=== PATIENT | female | born 1995 | race Caucasian/White ===

== ENCOUNTER 2023-01-04 10:53 | Outpatient (CLI) | payer OTHER ==
--- NOTE | 2023-01-04 12:02 | SLEEP CARE CONSULTATION ---
Information from patient questionnaire entered by Shelly Espinal. I have reviewed and concur with the information entered by Shelly Espinal. This document represents the service I personally performed and the decisions made by me, Wanda Wilkerson ARNP. History of Present Illness Service Date and Time: 01/04/2023 1053 Reason for Visit: New patient Chief Complaint: reports: Other (Sleep walking) Date of Onset: about 3 years Usual bedtime: 10 pm Time it takes to fall asleep: 30 minutes Snores at night: No Observed to quit breathing while asleep: No Sleeps alone due to snoring: No Number of times waking at night: once or none Reasons for waking at night: reports: Bathroom, Other (partner coming home). denies: Choking, Gasping for air Toss, Turn, or Twitch while sleeping: No Recalls having dreams: Yes Usually gets out of bed at: 0530; weekends 0900 Feels refreshed in the morning: No (only on weekends really) Morning headache: No Sleepy or fatigued during the day: Yes Ever fallen asleep while driving: No Takes day naps: No Dreams during day naps: Yes Prior sleep studies: No Additional HPI information: I had the pleasure of seeing MARCELLE DHILLON today regarding the possibility of her having a sleep disorder. Her current complaint is sleepwalking. She states it happens 2-3 times a month and can have a few months when it does not happen. Her fiance has not seen the sleepwalking but has found her out of bed and in another room. She did have a roommate who saw the sleepwalking. She states she has not woke up while it is happening. She will wake up in another room or with "things moved around". - Parasomnia Symptoms Ever been unable to move upon waking from sleep: Yes (just 3 times in a month, but none since) Walks in sleep: Yes Talks in sleep: Yes Ever acted out dreams in sleep: Yes Ever felt weak in the knees when startled or emotional: Yes (has not fallen to ground) Bothered by creepy, crawly, restless sensations in legs: No Problems with memory or concentration: Yes (both; memory may be worse) Subjective Initial Latimer Sleepiness Scale score: 8 (01-04-2023) Past Medical History Past Medical History: reports: Other (no significant medical history) Social History The patient's occupation is a AM. Patient is Single and lives in . Have you smoked in the past 12 months: Yes (vaping daily for 5-6 years) Alcohol use: Yes Alcohol amount and frequency: 2-3 drinks, twice a week Caffeine use: Yes Caffeine amount and frequency: one coffee, once or twice a week Family History Family history of sleep disordered breathing: Yes Family Hx Sleep Apnea: Mother: Snoring, Father: Snoring, Grandparent: Snoring Allergies and Home Medications Known drug allergies: Yes (Sulfa) Drug allergies reviewed: Yes Home medication list reviewed: Yes (no daily medications; take OTC vitamins) Review of Systems Weight gain over past 5 years: 15 Cardiovascular: denies: high blood pressure Gastrointestinal: reports: heartburn Neurological: denies: headaches Psychiatric: denies: anxiety, depression, mood disorder Ear/Nose/Throat: reports: tonsillectomy, wisdom teeth removed. denies: dry mouth/throat Endocrine: denies: thyroid disease Physical Exam Vital signs obtained and entered by: Wanda GUTIERREZ Blood Pressure: 102/68 (left arm) Cuff size: long Heart Rate: 67 O2 Saturation: 100 Height: 5 ft 1 in Weight: 176 lb 6.4 oz Body Mass Index: 33.3 BMI Classification: Obese Neck circumference: 13.25 Mouth and throat: narrow oropharynx Soft palate: long Hard palate: normal Uvula: normal Uvula visualization: 50% Mallampati Class II Tongue: enlarged in size with teeth macias on lateral edges Tonsils: absent bilaterally Neck: normal w/o lymphadenopathy or thyromegaly Heart: regular rate and rhythm Lungs: clear bilaterally Impression and Plan 1. Suspected Obstructive Sleep Apnea-Hypopnea Syndrome, as suggested by a history of sleep walking, unrefreshed sleep, cognitive impairment, and daytime fatigue/tiredness. Narrow oropharynx and obesity are common predisposing factors for obstructive sleep apnea-hypopnea syndrome. I recommend proceeding to polysomnography to confirm the diagnosis and to assess severity. If the patient has significant sleep disordered breathing, a manual CPAP titration study will also be performed to find the optimal treatment pressure. I informed the patient of what the sleep studies involve and after some discussion, obtained agreement to proceed. The pathophysiology of obstructive sleep apnea-hypopnea syndrome was discussed with the patient and health risks of cardiovascular and cerebrovascular disease if not treated. Risks of drowsy driving discussed in detail and patient advised to avoid long distance driving and to lathe puller at the first sign of drowsiness. Patient agreed to plan. * Schedule polysomnography +- manual CPAP titration study and return in 1-2 weeks after the study to discuss result and initiate therapy. * Avoid long distance driving or driving when feeling sleepy. * Avoid alcohol, sedative and muscle relaxant around bedtime. * Attempt to lose weight. * Review instructions provided by trained office staff on how to prepare for the sleep study. * Return for follow-up after sleep study completed. Counseling Topics: Weight loss health impact Visit Type: In Office Time Spent with Patient (minutes): 30 Provider Statement: I spent 100% of the Face to Face Visit with the patient with greater than 50% spent counseling the patient and coordination of care.
[2023-01-04 12:03] VITALS: BP 102/68
== END 2023-01-04 10:54 | disposition home or self-care (01) ==
LOC: SC 10:53
PROVIDERS: ATTEND Nurse Practitioner Family
DX: F51.3 Sleepwalking [somnambulism] (principal); G47.8 Other sleep disorders; R41.89 Other symptoms and signs involving cognitive functions and awareness; R53.83 Other fatigue; E66.9 Obesity, unspecified; Z68.33 Body mass index [BMI] 33.0-33.9, adult
CPT/HCPCS: 99203; 99212

== ENCOUNTER 2023-03-21 08:00 | Outpatient (CLI) | payer OTHER ==
[2023-03-21 17:13] LABS: BILIRUBIN,URINE NEGATIVE (NEGATIVE); GLUCOSE, URINE (UA) NEGATIVE (NEGATIVE); KETONES,URINE (UA) NEGATIVE (NEGATIVE); LEUKOCYTE ESTERASE, URINE SMALL (NEGATIVE); NITRITE,URINE NEGATIVE (NEGATIVE); OCCULT BLOOD,URINE NEGATIVE (NEGATIVE); PROTEIN,URINE NEGATIVE (NEGATIVE); UROBILINOGEN,URINE 0.2 (NORMAL) E.U./dL (NORMAL)
[2023-03-21 17:54] LABS: CLARITY,URINE CLEAR (CLEAR); RBC,URINE 0-5 /HPF (0-5); SQUAMOUS EPITHELIAL CELL,UR MANY Squamous (<= Few)
[2023-03-21 17:55] LABS: BACTERIA,URINE Many /HPF (None Seen)
== END 2023-03-21 23:59 | disposition home or self-care (01) ==
LOC: LAB.WC 08:00
PROVIDERS: ATTEND Nurse Practitioner
DX: Z34.90 Encounter for supervision of normal pregnancy, unspecified, unspecified trimester (principal)
CPT/HCPCS: 81001; 87086

== ENCOUNTER 2023-03-25 16:30 | Outpatient (CLI) | payer OTHER ==
--- NOTE | 2023-03-26 22:20 | Ultrasound Report ---
PROCEDURE: OB First Trimester w/TV INDICATIONS: POSITIVE TEST OUTSIDE/PRIOR DATING DATA: Last menstrual period (LMP): 02/01/2023. LMP-based estimated date of delivery (FRANCISCO): 11/08/2023. First dating scan (date and location): 03/25/2023. Estimated date of delivery (FRANCISCO) from first dating scan: Not applicable. TECHNIQUE: Real-time scanning was performed of the fetus and maternal pelvic organs, with image documentation. Endovaginal scanning was also performed to better visualize the fetus and maternal ovaries. COMPARISON: None. FINDINGS: Intrauterine gestational sacs identified measuring 0.95 cm corresponding to 5 weeks 5 days. No pole is identified. No heart tones. Yolk sac is present. Maternal organs: Ovaries demonstrate a right corpus luteal cyst. Nabothian cyst is present. IMPRESSION: Intrauterine gestational sac with yolk sac. No crown-rump length is identified. Recommend correlation to beta hCG levels and short interval imaging follow-up. Reviewed by: Dulce Rhodes MD on 03/26/2023 10:19 PM PDT Approved by: Dulce Rhodes MD on 03/26/2023 10:19 PM PDT Station ID: [id number]
== END 2023-03-25 16:31 | disposition home or self-care (01) ==
LOC: DI 16:30
PROVIDERS: ATTEND Nurse Practitioner
DX: Z34.90 Encounter for supervision of normal pregnancy, unspecified, unspecified trimester (principal)

== ENCOUNTER 2023-03-28 15:28 | Outpatient (CLI) | payer OTHER | END 2023-03-28 15:29 | disposition home or self-care (01) | LOC: LAB 15:28 | PROVIDERS: ATTEND Nurse Practitioner | DX: R68.89 Other general symptoms and signs (principal) | CPT/HCPCS: 36415; 84702 ==

== ENCOUNTER 2023-03-31 15:23 | Outpatient (CLI) | payer OTHER ==
[2023-03-31 16:15] LABS: THYROID STIMULATING HORMONE 1.11 uIU/mL (0.34-5.60)
== END 2023-03-31 15:24 | disposition home or self-care (01) ==
LOC: LAB 15:23
PROVIDERS: ATTEND Nurse Practitioner
DX: O99.891 Other specified diseases and conditions complicating pregnancy (principal); R68.89 Other general symptoms and signs
CPT/HCPCS: 36415; 84443; 84702

== ENCOUNTER 2023-04-14 08:00 | Outpatient (CLI) | payer OTHER ==
[2023-04-14 21:06] LABS: CHLAMYDIA TRACHOMATIS DNA NEGATIVE (NEGATIVE); NEISSERIA GONORRHOEAE DNA NEGATIVE (NEGATIVE); TRICHOMONAS VAGINALIS DNA NEGATIVE (NEGATIVE)
== END 2023-04-14 23:59 | disposition home or self-care (01) ==
LOC: LAB.WC 08:00
PROVIDERS: ATTEND Obstetrics & Gynecology
DX: Z34.90 Encounter for supervision of normal pregnancy, unspecified, unspecified trimester (principal)
CPT/HCPCS: 36415; 81001; 85025; 86592; 86762; 86787; 86803; 86850; 86900; 86901; 87086; 87340; 87389; 87491; 87591; 87661

== ENCOUNTER 2023-04-14 12:14 | Outpatient (CLI) | payer OTHER ==
[2023-04-14 12:30] LABS: BILIRUBIN,URINE NEGATIVE (NEGATIVE); GLUCOSE, URINE (UA) NEGATIVE (NEGATIVE); KETONES,URINE (UA) NEGATIVE (NEGATIVE); LEUKOCYTE ESTERASE, URINE TRACE (NEGATIVE); NITRITE,URINE NEGATIVE (NEGATIVE); OCCULT BLOOD,URINE NEGATIVE (NEGATIVE); PH,URINE 5.5 PH (5.0-7.5); PROTEIN,URINE NEGATIVE (NEGATIVE); UROBILINOGEN,URINE 0.2 (NORMAL) E.U./dL (NORMAL)
[2023-04-14 12:31] LABS: BASOPHILS % (AUTO) 0.3 %; EOSINOPHILS # (AUTO) 0.1 10^3/uL (0.0-0.7); HCT - HEMATOCRIT 32.6 % (37.0-47.0); HGB - HEMOGLOBIN 11.2 g/dL (12.0-16.0); LYMPHOCYTES # (AUTO) 2.2 10^3/uL (1.5-3.5); LYMPHOCYTES % (AUTO) 27.9 %; MEAN CORPUSCULAR HEMOGLOBIN 31.8 pg (27.0-31.0); MEAN CORPUSCULAR HGB CONC 34.4 g/dL (32.0-36.0); MEAN CORPUSCULAR VOLUME 92.6 fL (81.0-99.0); MEAN PLATELET VOLUME 8.9 fL (7.9-10.8); MONOCYTES # (AUTO) 0.7 10^3/uL (0.0-1.0); MONOCYTES % (AUTO) 8.2 %; NEUTROPHILS # (AUTO) 4.9 10^3/uL (1.5-6.6); NEUTROPHILS % (AUTO) 62.2 %; PLT - PLATELET COUNT 241 10^3/uL (130-450); RED BLOOD COUNT 3.52 10^6/uL (4.20-5.40); RED CELL DISTRIBUTION WIDTH 11.9 % (12.0-15.0); WHITE BLOOD COUNT 7.9 x10^3/uL (4.8-10.8)
[2023-04-14 12:35] LABS: CLARITY,URINE SL. CLOUDY (CLEAR)
[2023-04-14 12:37] LABS: BACTERIA,URINE Moderate /HPF (None Seen); RBC,URINE 0-5 /HPF (0-5); SQUAMOUS EPITHELIAL CELL,UR MANY Squamous (<= Few)
[2023-04-15 06:10] LABS: HBsAG SCREEN Negative (Negative)
[2023-04-15 07:10] LABS: RPR Non Reactive (Non Reactive)
[2023-04-15 08:11] LABS: VARICELLA-ZOSTER AB IGG <135 index (Immune >165)
[2023-04-16 01:08] LABS: HCV AB Non Reactive (Non Reactive)
[2023-04-16 04:09] LABS: HIV SCREEN 4TH GENERATION Non Reactive (Non Reactive)
== END 2023-04-14 12:15 | disposition home or self-care (01) ==
LOC: LAB 12:14
PROVIDERS: ATTEND Nurse Practitioner
DX: Z34.90 Encounter for supervision of normal pregnancy, unspecified, unspecified trimester (principal)
CPT/HCPCS: 36415; 81001; 85025; 86592; 86762; 86787; 86803; 86850; 86900; 86901; 87086; 87340; 87389

== ENCOUNTER 2023-04-26 15:33 | Outpatient (CLI) | payer OTHER ==
[2023-04-26 16:02] LABS: BILIRUBIN,URINE NEGATIVE (NEGATIVE); GLUCOSE, URINE (UA) NEGATIVE (NEGATIVE); KETONES,URINE (UA) NEGATIVE (NEGATIVE); LEUKOCYTE ESTERASE, URINE NEGATIVE (NEGATIVE); NITRITE,URINE NEGATIVE (NEGATIVE); OCCULT BLOOD,URINE NEGATIVE (NEGATIVE); PH,URINE 5.5 PH (5.0-7.5); PROTEIN,URINE NEGATIVE (NEGATIVE); UROBILINOGEN,URINE 0.2 (NORMAL) E.U./dL (NORMAL)
[2023-04-26 16:10] LABS: BACTERIA,URINE Moderate /HPF (None Seen); CLARITY,URINE HAZY (CLEAR); MUCUS,URINE Few Strands; RBC,URINE 0-5 /HPF (0-5); SQUAMOUS EPITHELIAL CELL,UR MOD Squamous (<= Few); WBC,URINE 0-3 /HPF (0-5)
== END 2023-04-26 15:34 | disposition home or self-care (01) ==
LOC: LAB 15:33
PROVIDERS: ATTEND Nurse Practitioner
DX: Z34.91 Encounter for supervision of normal pregnancy, unspecified, first trimester (principal)
CPT/HCPCS: 81001; 87086

== ENCOUNTER 2023-07-11 09:05 | Outpatient (CLI) | payer OTHER ==
--- NOTE | 2023-07-11 13:33 | Ultrasound Report ---
PROCEDURE: OB Detailed Eval INDICATIONS: SUPERVISION OF OUTSIDE/PRIOR DATING DATA: Last menstrual period (LMP): 02/01/2023. LMP-based estimated date of delivery (FRANCISCO): 11/08/2023. First dating scan (date and location): 04/08/2023. Estimated date of delivery (FRANCISCO) from first dating scan: 11/22/2023. The below data below was generated using the working FRANCISCO of 11/22/2023 TECHNIQUE: Real-time scanning was performed of the fetus, with image documentation and biometric measurements. Endovaginal scanning: Not performed. COMPARISON: 04/08/2023 FINDINGS: General: A single living intrauterine gestation is present. Presentation: Vertex Placenta: Placental position is posterior, without previa. Amniotic fluid index: 12.6 cm, within normal limits for gestational age. Largest pocket is 3.8 cm heart rate: 155 beats per minute. Maternal cervical canal: Closed and 5.2 cm long; normal length is 2.5 cm or more. biometrics: Biparietal diameter: 4.7 cm, 20 weeks 2 days, 28th percentile Head circumference: 18.2 cm, 20 weeks 4 days, 30th percentile Abdominal circumference: 17.2 cm, 22 weeks 1 day, 84th percentile Femur length: 3.3 cm, 20 weeks 2 days, 24th percentile Estimated gestational age from initial scan: 20 weeks 6 days Composite gestational age from present scan: 20 weeks 6 days Estimated weight and percentile: 410 g, 67th percentile Measurement variability in biometric dating: +/- 10 days from 12-20 weeks gestation, +/- 2 weeks from 20-30 weeks gestation, +/- 3 weeks at 30 weeks gestation or later. Anatomic survey: Neuro: Ventricles are normal at less than 10 mm. Cisterna magna is normal at 3-11 mm. Cerebellum i s normal in size and morphology. Nuchal skin fold: Normal at less than 6 mm between 14 and 20 weeks gestational age. Face: Nose and lips, facial profile are normal. Spine: No evidence for spina bifida. Heart: 4-chambered heart is present, with normal ventricular outflow tracts. Diaphragm: Diaphragm is intact. Stomach: Left-sided stomach is present. Kidneys: No hydronephrosis. Normal is less than 5 mm in 2nd trimester, less than 7 mm in 3rd trimester. Cord: 3 vessel cord has orthotopic insertion. Bladder: Normal in size. Extremities: All 4 extremities are visualized. IMPRESSION: A single living intrauterine with symmetric and appropriate growth. Normal anatomy. Closed cervix and normal amniotic fluid volume. Reviewed by: Kirsten Hines MD on 07/11/2023 1:32 PM PST Approved by: Kirsten Hines MD on 07/11/2023 1:32 PM PST Station ID: [id number]
== END 2023-07-11 09:06 | disposition home or self-care (01) ==
LOC: DI 09:05
PROVIDERS: ATTEND Obstetrics & Gynecology
DX: O99.282 Endocrine, nutritional and metabolic diseases complicating pregnancy, second trimester (principal); E78.5 Hyperlipidemia, unspecified; Z3A.20 20 weeks gestation of pregnancy
CPT/HCPCS: 36415; 82105

== ENCOUNTER 2023-07-11 10:29 | Outpatient (CLI) | payer OTHER ==
[2023-07-13 20:08] LABS: AFP MOM 1.45 (.); AFP VALUE 83.8 ng/mL (.); GEST. AGE ON COLLECTION DATE 20.9 weeks (.); GESTAT. AGE METHOD EDD (.); INSULIN DEP DIABETES No (.); MATERNAL AGE AT EDD 26.2 yr (.); MULTIPLE GESTATION No (.); OPEN SPINA BIFIDA RISK 1 IN 3133 (.); RACE Caucasian (.); RESULTS Report (.); TEST RESULTS *Screen Negative* (.); WEIGHT 178 lbs (.)
== END 2023-07-11 10:30 | disposition home or self-care (01) ==
LOC: LAB 10:29
PROVIDERS: ATTEND Obstetrics & Gynecology
DX: Z36.0 Encounter for antenatal screening for chromosomal anomalies (principal)
CPT/HCPCS: 36415; 82105

== ENCOUNTER 2023-08-30 07:29 | Outpatient (CLI) | payer OTHER ==
[2023-08-30 12:04] LABS: HCT - HEMATOCRIT 29.3 % (37.0-47.0); HGB - HEMOGLOBIN 9.6 g/dL (12.0-16.0); MEAN CORPUSCULAR HEMOGLOBIN 31.8 pg (27.0-31.0); MEAN CORPUSCULAR HGB CONC 32.8 g/dL (32.0-36.0); MEAN PLATELET VOLUME 9.4 fL (7.9-10.8); RED BLOOD COUNT 3.02 10^6/uL (4.20-5.40); RED CELL DISTRIBUTION WIDTH 13.2 % (12.0-15.0); WHITE BLOOD COUNT 9.3 x10^3/uL (4.8-10.8)
== END 2023-08-30 07:30 | disposition home or self-care (01) ==
LOC: LAB.N 07:29
PROVIDERS: ATTEND Obstetrics & Gynecology
DX: Z36.89 Encounter for other specified antenatal screening (principal)
CPT/HCPCS: 36415; 82950; 85027; 86850

== ENCOUNTER 2023-09-02 08:05 | Outpatient (CLI) | payer OTHER ==
[2023-09-02 08:38] LABS: GTT GLUCOSE,FASTING 89 mg/dL (74-109)
== END 2023-09-02 08:06 | disposition home or self-care (01) ==
LOC: LAB 08:05
PROVIDERS: ATTEND Obstetrics & Gynecology
DX: O99.810 Abnormal glucose complicating pregnancy (principal)
CPT/HCPCS: 36415; 82951; 82952

== ENCOUNTER 2023-09-02 11:50 | Outpatient (CLI) | payer OTHER ==
--- NOTE | 2023-09-02 20:18 | Ultrasound Report ---
PROCEDURE: OB Follow up INDICATIONS: UTERINE SIZE DATE DISCREPENCY OUTSIDE/PRIOR DATING DATA: Last menstrual period (LMP): 02/01/2023. LMP-based estimated date of delivery (FRANCISCO): 11/08/2023. First dating scan (date and location): 04/08/2023. Estimated date of delivery (FRANCISCO) from first dating scan: 11/22/2023. The below data below was generated using the working FRANCISCO of 11/22/2023. TECHNIQUE: Real-time scanning was performed of the fetus, with image documentation and biometric measurements. Endovaginal scanning: Not performed. COMPARISON: OB ultrasound, 04/08/2023 and 07/11/2023. FINDINGS: General: A single living intrauterine gestation is present. Presentation: Vertex Placenta: Placental position is posterior fundal, without previa. Amniotic fluid index: 13.0 cm, within deepest pocket 4.9 cm. heart rate: 143 beats per minute. Maternal cervical canal: Closed measuring 3.0 cm long; normal length is 2.5 cm or more. biometrics: Biparietal diameter: 7.31 cm; 29 weeks 2 days; 67.6% Head circumference: 26.24 cm; 28 weeks 4 days; 21.9% Abdominal circumference: 24.98 cm; 29 weeks 1 day; 66.7% Femur length: 4.97 cm; 26 weeks 5 days; 4.3% Estimated gestational age from initial scan: 28 weeks 3 days. Composite gestational age from present scan: 28 weeks 3 days Estimated weight and percentile: 1212.4 g; 33.7% Measurement variability in biometric dating: +/- 10 days from 12-20 weeks gestation, +/- 2 weeks from 20-30 weeks gestation, +/- 3 weeks at 30 weeks gestation or more. Other: Not applicable. IMPRESSION: 1. A single living intrauterine gestation with appropriate interval growth. 2. Femur length at 4.3%, which may be constitutional. Consider follow-up if clinically indicated. 3. weight is 33.7% for gestational age. 4. Normal ALFREDO. Reviewed by: Garth Rizzo MD on 09/02/2023 8:16 PM PST Approved by: Garth Rizzo MD on 09/02/2023 8:16 PM PST Station ID: [id number]
== END 2023-09-02 11:51 | disposition home or self-care (01) ==
LOC: DI 11:50
PROVIDERS: ATTEND Obstetrics & Gynecology
DX: O26.843 Uterine size-date discrepancy, third trimester (principal); Z3A.28 28 weeks gestation of pregnancy; O99.810 Abnormal glucose complicating pregnancy
CPT/HCPCS: 36415; 82951; 82952

== ENCOUNTER 2023-09-27 11:42 | Outpatient (CLI) | payer OTHER ==
--- NOTE | 2023-09-27 20:16 | Ultrasound Report ---
PROCEDURE: OB Follow up INDICATIONS: SUPERVISION OF OUTSIDE/PRIOR DATING DATA: Last menstrual period (LMP): 02/01/2023. LMP-based estimated date of delivery (FRANCISCO): 11/08/2023. First dating scan (date and location): 04/08/2023. Estimated date of delivery (FRANCISCO) from first dating scan: 11/22/2023. The below data below was generated using the ultrasound FRANCISCO of 11/22/2023 TECHNIQUE: Real-time scanning was performed of the fetus, with image documentation and biometric measurements. Endovaginal scanning: Not performed. COMPARISON: OB ultrasound 09/02/2023. FINDINGS: General: A single living intrauterine gestation is present. Presentation: Vertex Placenta: Placental position is posterior fundal, without previa. Amniotic fluid index: 17.7 cm, within normal limits for gestational age. Largest pocket 5.7 cm. heart rate: 136 beats per minute. biometrics: Biparietal diameter: 8.4 cm, 34 weeks 0 days. 90th percentile. Head circumference: 30.9 cm, 34 weeks 3 days. 78th percentile. Abdominal circumference: 30.2 cm, 34 weeks 1 day. 95th percentile. Femur length: 5.9 cm, 30 weeks 4 days. 8th percentile. Estimated gestational age from initial scan: 32 weeks 0 days Composite gestational age from present scan: 33 weeks 2 days Estimated weight and percentile: 430 g, 76th percentile. Measurement variability in biometric dating: +/- 10 days from 12-20 weeks gestation, +/- 2 weeks from 20-30 weeks gestation, +/- 3 weeks at 30 weeks gestation or more. Other: No gross abnormality. IMPRESSION: 1. Torres living intrauterine at 33 weeks 2 days based on today's ultrasound. Overall fe tus is in the 76th percentile for weight. Of note the femur length is in the 8th percentile. 2. Normal placenta and amniotic fluid. Reviewed by: Danny Rendon MD on 09/27/2023 8:15 PM PST Approved by: Danny Rendon MD on 09/27/2023 8:15 PM PST Station ID: [id number]
== END 2023-09-27 11:43 | disposition home or self-care (01) ==
LOC: DI 11:42
PROVIDERS: ATTEND Obstetrics & Gynecology
DX: Z34.93 Encounter for supervision of normal pregnancy, unspecified, third trimester (principal)

== ENCOUNTER 2023-10-25 10:16 | Outpatient (CLI) | payer OTHER ==
--- NOTE | 2023-10-25 21:06 | Ultrasound Report ---
PROCEDURE: OB Follow up INDICATIONS: UTERINE SIZE DATE DISCREPENCY OUTSIDE/PRIOR DATING DATA: Last menstrual period (LMP): 02/01/2023. LMP-based estimated date of delivery (FRANCISCO): 11/08/2023. First dating scan (date and location): 04/08/2023. Estimated date of delivery (FRANCISCO) from first dating scan: 11/22/2023. The below data below was generated using the working FRANCISCO of 11/22/2023 TECHNIQUE: Real-time scanning was performed of the fetus, with image documentation and biometric measurements. Endovaginal scanning: Not performed. COMPARISON: 09/27/2023, 09/02/2023, 07/11/2023 FINDINGS: General: A single living intrauterine gestation is present. Presentation: Vertex Placenta: Placental position is posterior, without previa. Amniotic fluid index: 18.4 cm, within normal limits for gestational age. heart rate: 137 beats per minute. Maternal cervical canal: 3.2 cm long; normal length is 2.5 cm or more. biometrics: Biparietal diameter: 9.1 cm, 36 weeks, 5 days, 77% Head circumference: 32.9 cm, 37 weeks 3 days, 55% Abdominal circumference: 35.9 cm, 39 weeks, 6 days, greater than 99% Femur length: 6.7 cm, 34 weeks, 3 days, 11% Estimated gestational age from initial scan: 36 weeks, 0 day Composite gestational age from present scan: 37 weeks, 1 day Estimated weight and percentile: 3372 g, 94% Measurement variability in biometric dating: +/- 10 days from 12-20 weeks gestation, +/- 2 weeks from 20-30 weeks gestation, +/- 3 weeks at 30 weeks gestation or more. Other: Not applicable. IMPRESSION: 1. Single live intrauterine gestation with fetus in vertex presentation. heart rate is 137 beat s per minute. Normal amount of amniotic fluid. 2. Estimated weight is now at 94%. Femur length is at 11%. Abdominal circumference is greater t sampson 99%. Reviewed by: Vasquez Strong MD on 10/25/2023 9:05 PM PST Approved by: Vasquez Strong MD on 10/25/2023 9:05 PM PST Station ID: [id number]
== END 2023-10-25 10:17 | disposition home or self-care (01) ==
LOC: DI 10:16
PROVIDERS: ATTEND Obstetrics & Gynecology
DX: O26.843 Uterine size-date discrepancy, third trimester (principal); Z3A.37 37 weeks gestation of pregnancy

== ENCOUNTER 2023-10-26 08:00 | Outpatient (CLI) | payer OTHER | END 2023-10-26 23:59 | disposition home or self-care (01) | LOC: LAB.WC 08:00 | PROVIDERS: ATTEND Obstetrics & Gynecology | DX: Z36.85 Encounter for antenatal screening for Streptococcus B (principal) | CPT/HCPCS: 87081; 87797 ==

== ENCOUNTER 2023-11-02 08:00 | Outpatient (CLI) | payer OTHER ==
[2023-11-02 10:18] LABS: RUPTURE OF MEMBRANES PLUS NEGATIVE (NEGATIVE)
== END 2023-11-02 23:59 | disposition home or self-care (01) ==
LOC: LAB.WC 08:00
PROVIDERS: ATTEND Obstetrics & Gynecology
DX: N89.8 Other specified noninflammatory disorders of vagina (principal)
CPT/HCPCS: 84112

== ENCOUNTER 2023-11-15 19:32 | Inpatient (IN) | payer OTHER, MEDICAID ==
[2023-11-15] MEDS ORDERED: METOCLOPRAMIDE 10 MG/2 ML VIAL IVP PRN (20:17)
[2023-11-15] MEDS ORDERED: OXYTOCIN 10 UNIT/ML VIAL IM PRN (20:17)
[2023-11-15] MEDS ORDERED: ACETAMINOPHEN 325 MG TABLET PO PRN (20:17)
[2023-11-15] MEDS ORDERED: SODIUM CHLORIDE FLUSH 0.9% 10 ML SYRINGE IVP PRN (20:17)
[2023-11-15] MEDS ORDERED: METHYLERGONOVINE 0.2 MG/ML VIAL IM PRN (20:17)
[2023-11-15] MEDS ORDERED: fentaNYL 100 MCG/2 ML VIAL IVP PRN (20:17)
[2023-11-15] MEDS ORDERED: miSOPROStoL 200 MCG TABLET BC PRN (20:17)
[2023-11-15] MEDS ORDERED: lidocaine 1% 20 ML MDV ID PRN (20:17)
[2023-11-15] MEDS ORDERED: TRANEXAMIC ACID IN NACL 1,000 MG/100 ML BAG IV PRN (20:17)
[2023-11-15] MEDS ORDERED: METOCLOPRAMIDE 10 MG TABLET PO PRN (20:17)
[2023-11-15] MEDS ORDERED: CARBOPROST TROMETHAMINE 250 MCG/ML VIAL IM PRN (20:17)
--- NOTE | 2023-11-15 20:25 | HISTORY & PHYSICAL EXAMINATION ---
Admit History - Visit Reason Visit Reason: Other (admission for induction at term) - : 2 : 1 Care: positive: [facility] Risk/History: positive: Other (baby with small femur) Complications This : positive: None, Other (baby is large by last uls.) Smoking Status: Never smoker (0............. ................................................................................ ................................................................................ .......................................................................) - Mother's Labs Mother's Blood Type: positive: A Mother's RH: positive: Positive GBS: positive: Group B Strep Positive Rubella Status: positive: Immune (varicella non immune) - Other Maternal History Other Maternal History: medical and hx mostly uncomplicated. no surgeries. anemia 29% hct at 28 weeks. 1 hr glucose 167, 3 hr 89/174/153/68. last ultrasound on 10/25/23: FINDINGS: General: A single living intrauterine gestation is present. Presentation: Vertex Placenta: Placental position is posterior, without previa. Amniotic fluid index: 18.4 cm, within normal limits for gestational age. heart rate: 137 beats per minute. Maternal cervical canal: 3.2 cm long; normal length is 2.5 cm or more. biometrics: Biparietal diameter: 9.1 cm, 36 weeks, 5 days, 77% Head circumference: 32.9 cm, 37 weeks 3 days, 55% Abdominal circumference: 35.9 cm, 39 weeks, 6 days, greater than 99% Femur length: 6.7 cm, 34 weeks, 3 days, 11% Estimated gestational age from initial scan: 36 weeks, 0 day Composite gestational age from present scan: 37 weeks, 1 day Estimated weight and percentile: 3372 g, 94% Review of Systems - Gastrointestinal Gastrointestinal: reports: Nausea. denies: Abdominal pain - Neurological Neurological: denies: Headache - Other Findings Other Findings: some swelling. nausea getting worse. good movment. feeling some contractions last 2 days. Physical - Abdominal Exam Contraction Frequency (min/apart): irreg Contraction Intensity: positive: Mild Uterine Resting Tone: positive: Soft - Monitoring Heart Rate Baseline: 135 Strip Review: positive: Category I - Presentation Presentation: positive: Vertex - Vaginal Exam Membranes: positive: Membranes intact Dilation (in cm): 0.5 Effacement (%): 70 Station: positive: Ballotable Cervical Position: positive: Midposition Plan for Labor - Plan For Labor I expect patient to be DC'd or transferred within 96 hours.: Yes Plan for Labor: 28 yo at 39w 0d by 7 weeks uls not = to lmp. Admit for obs for labor induction due to baby being quite large and femur is quite short. EFW 3 weeks ago was 3372 gm with AC greater than 99%ile. will start with miso. GBS + ampicillin when in labor. if no labor in 24 hrs, could discharge and try again in a day or two more. labor induction process reviewed. consents signed.
[2023-11-15 20:59] LABS: BASOPHILS % (AUTO) 0.2 %; EOSINOPHILS % (AUTO) 0.2 %; HCT - HEMATOCRIT 30.9 % (37.0-47.0); HGB - HEMOGLOBIN 10.3 g/dL (12.0-16.0); LYMPHOCYTES # (AUTO) 2.3 10^3/uL (1.5-3.5); LYMPHOCYTES % (AUTO) 21.3 %; MEAN CORPUSCULAR HEMOGLOBIN 31.4 pg (27.0-31.0); MEAN CORPUSCULAR HGB CONC 33.3 g/dL (32.0-36.0); MEAN CORPUSCULAR VOLUME 94.2 fL (81.0-99.0); MEAN PLATELET VOLUME 10.1 fL (7.9-10.8); MONOCYTES # (AUTO) 0.7 10^3/uL (0.0-1.0); MONOCYTES % (AUTO) 6.4 %; NEUTROPHILS # (AUTO) 7.8 10^3/uL (1.5-6.6); NEUTROPHILS % (AUTO) 71.3 %; PLT - PLATELET COUNT 221 10^3/uL (130-450); RED BLOOD COUNT 3.28 10^6/uL (4.20-5.40); RED CELL DISTRIBUTION WIDTH 14.2 % (12.0-15.0)
[2023-11-15] MEDS: miSOPROStoL 100 MCG TABLET VG SCH (21:09)
[2023-11-15] MEDS: ZOLPIDEM 5 MG TABLET PO PRN (21:59)
--- NOTE | 2023-11-16 01:32 | PROVIDER PROGRESS NOTE ---
Labor Progress Note - Uterine Monitoring Uterine Monitoring Mode: positive: External toco Contraction Frequency (min/apart): 2 Contraction Intensity: positive: Mild to moderate Uterine Resting Tone: positive: Soft - Monitoring Monitor Mode: positive: External ultrasound Heart Rate Variability: positive: Moderate (6-25 bmp) Accelerations: positive: Present, 15x15 Decelerations: positive: None Strip Review: positive: Category I - Vaginal Exam Dilation (in cm): 1 Effacement (%): 80 Station: -3 Cervical Position: Anterior - Labor Progress Note Labor Progress Note/Additional Text: too many contractions for second miso. catheter placed in cervix. 80 cc intrauterine. 60 cc in vaginal balloon. patient tolerated very well. took an ambien early and slept for a few hours after first miso placed. partner at bedside.
[2023-11-16] MEDS: LACTATED RINGERS 1,000 ML IV SCH (02:00)
[2023-11-16] MEDS: SODIUM CHLORIDE FLUSH 0.9% 10 ML SYRINGE IVP SCH (13:19)
--- NOTE | 2023-11-16 19:08 | PROVIDER PROGRESS NOTE ---
Labor Progress Note - Uterine Monitoring Uterine Monitoring Mode: positive: External toco Contraction Frequency (min/apart): 4-6 - Monitoring Monitor Mode: positive: External ultrasound Heart Rate Baseline: 135 Heart Rate Variability: positive: Moderate (6-25 bmp) Accelerations: positive: Present, 15x15 Decelerations: positive: None Strip Review: positive: Category I - Labor Progress Note Labor Progress Note/Additional Text: Patient doing well. Had CRB removed after 12 hours, still 1.5 cm. Misoprostol restarted. Will continue overnight and reassess for cervical ripening. Tolerating misoprostol so far. Expect progression overnight.
[2023-11-17] MEDS ORDERED: AMPICILLIN 2 GM VIAL IV ONE (02:54)
[2023-11-17] MEDS: AMPICILLIN 2 GM in SODIUM CHLORIDE 0.9% MINIBAG 100 ML IV ONE (03:14)
[2023-11-17] MEDS ORDERED: ROPIVACAINE 0.2% 200 MG/100 ML BAG EP ONE (04:12)
[2023-11-17] MEDS ORDERED: LIDOCAINE 2%-EPI 1:100000 20 ML MDV ONE (04:12)
[2023-11-17] MEDS: ONDANSETRON 4 MG/2 ML VIAL IVP PRN (05:02)
[2023-11-17] MEDS: AMPICILLIN 1 GM in SODIUM CHLORIDE 0.9% MINIBAG 100 ML IV SCH (05:13)
[2023-11-17] MEDS ORDERED: ePHEDrine 50 MG/ML VIAL IVP ONE (05:41)
--- NOTE | 2023-11-17 05:46 | ANESTHESIA ---
Pre-Anesthesia VS, & Labs - Diagnosis desires labor epidural - Procedure placement of labor epidural Vital Signs: Temp Pulse Resp BP Pulse Ox O2 Flow Rate 36.7 C 84 16 115/70 99 11/16/23 15:00 11/16/23 15:00 11/16/23 15:00 11/16/23 15:00 11/16/23 15:00 Height: 5 ft 1 in Weight (kg): 90.718 kg Body Mass Index: 37.8 BMI Classification: Obese - NPO Last Fluid Intake: SIPS - Is Patient ?: Yes (G2, P0, 39 WEEKS) - Lab Results Current Lab Results: Laboratory Tests 11/15/23 20:40: WBC 11.0 H, RBC 3.28 L, Hgb 10.3 L, Hct 30.9 L, MCV 94.2, MCH 31.4 H, MCHC 33.3, RDW 14.2, Plt Count 221, MPV 10.1, Neut # (Auto) 7.8 H, Lymph # (Auto) 2.3, [place] # (Auto) 0.7, Eos # (Auto) 0.0, Baso # (Auto) 0.0, Absolute Nucleated RBC 0.00, Nucleated RBC % 0.0 11/15/23 20:40: Blood Type A POSITIVE, Antibody Screen NEGATIVE Fish Bones: 11/15/23 20:40 Home Medications and Allergies Active Medications Acetaminophen (Acetaminophen 325 Mg Tablet) 650 mg PO Q6H PRN PRN Reason: Mild Pain or Fever>38C(100.4F) Carboprost Tromethamine (Carboprost Tromethamine 250 Mcg/Ml Vial) 250 mcg IM Q15M PRN PRN Reason: Step 4: Hemorrhage protocol Fentanyl (Fentanyl 100 Mcg/2 Ml Vial) 50 mcg IVP Q1H PRN PRN Reason: Severe Pain (Level 7-10) Oxytocin/Sodium Chloride (Pitocin/Sodium Chloride) 500 mls @ 999 mls/hr IV PRN PRN; Protocol PRN Reason: POST- HEMORR PREVENTION Stop: 11/20/23 20:18 Tranexamic Acid (Tranexamic 1,000 Mg/100ml-Nacl) 1,000 mg in 100 mls @ 600 mls/hr IV .ONCE PRN PRN Reason: EBL >1200mL and within 3hr Stop: 11/20/23 20:18 Ampicillin Sodium 1 gm/ Sodium (Chloride) 100 mls @ 200 mls/hr IV Q4H [facility] Last Admin: 11/17/23 05:17 Dose: Not Given Lactated Ringer's (Lr) 1,000 mls @ 100 mls/hr IV .Q10H [facility] Last Admin: 11/17/23 05:17 Dose: Not Given Lidocaine HCl (Lidocaine 1% 20 Ml Mdv) 20 ml ID .ONCE PRN PRN Reason: PERINEAL REPAIR Stop: 11/20/23 20:18 Methylergonovine Maleate (Methylergonovine 0.2 Mg/Ml Vial) 0.2 mg IM .ONCE PRN PRN Reason: Step 2: Hemorrhage protocol Stop: 11/20/23 20:18 Metoclopramide HCl (Metoclopramide 10 Mg Tablet) 10 mg PO Q6H PRN PRN Reason: Nausea / Vomiting Metoclopramide HCl (Metoclopramide 10 Mg/2 Ml Vial) 10 mg IVP Q6H PRN PRN Reason: Nausea / Vomiting Misoprostol (Misoprostol 200 Mcg Tablet) 800 mcg BC .ONCE PRN PRN Reason: Step 3: Hemorrhage protocol Stop: 11/20/23 20:18 Misoprostol (Misoprostol 100 Mcg Tablet) 25 mcg VG Q4HR [facility] Last Admin: 11/17/23 05:17 Dose: Not Given Ondansetron HCl (Ondansetron 4 Mg/2 Ml Vial) 4 mg IVP Q4HR PRN PRN Reason: Nausea / Vomiting Last Admin: 11/17/23 05:02 Dose: 4 mg Oxytocin (Oxytocin 10 Unit/Ml Vial) 10 unit IM .ONCE PRN PRN Reason: Step one: If no IV access Stop: 11/20/23 20:18 Sodium Chloride (Sodium Chloride Flush 0.9% 10 Ml Syringe) 10 ml IVP 0100,0900,1700 [facility] Last Admin: 11/17/23 05:16 Dose: Not Given Sodium Chloride (Sodium Chloride Flush 0.9% 10 Ml Syringe) 10 ml IVP PRN PRN PRN Reason: NEEDED PER PROVIDER ORDERS Zolpidem Tartrate (Zolpidem 5 Mg Tablet) 5 mg PO QPM PRN PRN Reason: Insomnia Last Admin: 11/17/23 00:15 Dose: 5 mg Allergies/Adverse Reactions: Allergies Allergy/AdvReac Type Severity Reaction Status Date / Time Sulfa (Sulfonamide Allergy Intermediate Hives Verified 11/16/23 05:23 Antibiotics) Anes History & Medical History - Anesthetic History Anesthesia Complications: reports: No previous complications Family history of Anesthesia Complications: Denies - Medical History Cardiovascular: reports: None Pulmonary: reports: None Gastrointestinal: reports: None Musculoskeletal: reports: None Blood Disorders: reports: None Smoking Status: Former smoker Psychosocial: reports: No issues indicated - Obstetrical History : 2 Events: reports: Other (baby with small femur) Complications: reports: None, Other (baby is large by last uls.) Exam General: Alert, Oriented x3 Dental: WNL Mouth Openin Fingerbreadth Neck Mobility: Normal Mallampati classification: II Thyromental Distance: 4-6 cm Plan Anesthesia Type: Epidural Consent for Procedure(s) Verified and Reviewed: Yes Code Status: Attempt Resuscitation ASA classification: 2-Mild systemic disease Is this case an emergency?: No
[2023-11-17] MEDS ORDERED: ONDANSETRON 4 MG/2 ML VIAL IVP PRN ×2 (05:47→14:15)
[2023-11-17] MEDS ORDERED: NALBUPHINE 10 MG/ML AMP IVP PRN (05:47)
[2023-11-17] MEDS ORDERED: diphenhydrAMINE INJ 50 MG/ML VIAL IVP PRN (05:47)
[2023-11-17] MEDS: OXYTOCIN/SODIUM CHLORIDE 500 ML IV SCH (08:35)
--- NOTE | 2023-11-17 09:17 | PROVIDER PROGRESS NOTE ---
Labor Progress Note - Uterine Monitoring Uterine Monitoring Mode: positive: External toco - Monitoring Monitor Mode: positive: External ultrasound - Vaginal Exam Dilation (in cm): 7 Effacement (%): 100 Station: -2 - Labor Progress Note Labor Progress Note/Additional Text: Patient unchanged. Will start oxytocin. Comfortable with epidural. Category 1 FHT. I expect this patient to be discharged or transferred within 96 hours.
[2023-11-17] MEDS: ROPIVACAINE 0.2% 200 MG/100 ML BAG EP PRN (12:30)
[2023-11-17] MEDS: OXYTOCIN/SODIUM CHLORIDE 500 ML IV PRN (13:13)
[2023-11-17] MEDS ORDERED: CALCIUM CARBONATE CHEW 500 MG TABLET PO PRN (14:15)
[2023-11-17] MEDS ORDERED: SIMETHICONE CHEW 80 MG TABLET PO PRN (14:15)
--- NOTE | 2023-11-17 14:20 | DELIVERY NOTE ---
Delivery Note - Labor Labor: positive: Augmented by oxytocin - Delivery Method Delivery Method: positive: Spontaneous vaginal delivery - Cervical Ripening Method Cervical Ripening Method: positive: Balloon device, Misoprostil - Presentation Presentation: positive: Vertex - Nuchal Cord Nuchal Cord: positive: None - Anesthetic Anesthetic Type: - Amniotic Fluid Description Amniotic Fluid Description: positive: Clear - Laceration Laceration: positive: 2nd degree - Suture Suture Type: positive: Vicryl Suture Size: positive: 3-0 - : positive: Placed in direct skin contact with mother, [place] used sex: positive: Male - Cord Cord: positive: 3 vessels - Placenta Placenta: positive: Intact - Estimated Blood Loss Estimated Blood Loss (in cc): 400 - Post Delivery Events Post Delivery Events: positive: No post delivery events - Delivery Comments (Free Text/Narrative) Delivery Comments (Free Text/Narrative): Preoperative Diagnoses 39 weeks gestation Suspected macrosomia Postoperative Diagnoses Same Delivery of live kraft Status post spontaneous vaginal delivery Delivery Summary: Patient was placed in the dorsal lithotomy position. Upon maternal pushing the head was delivered atraumatically followed by the anterior shoulder, posterior shoulder, then the remainder of the infant's body. A male was delivered with APGARS of 8 at 1 minute and 9 at 5 minutes. The infant was placed on its mother's chest . After the cord finished pulsating, the umbilical cord was clamped times two and cut. The placenta delivered intact with three vessel cord. Placenta was not sent to pathology. Thirty units of Pitocin were added to the IV fluid and allowed to run freely. Uterine massage was performed until uterus was deemed firm. Upon inspection of the perineum, second-degree midline laceration was noted and repaired with a running suture of 3-0 Vicryl. Several small areas of stretched epithelium were noted, but no active bleeding. Upon re-inspection the patient was hemostatic. Uterus again massaged and found to be firm. Needle and sponge c ounts were correct. Patient was stable and allowed to recover in L&D room. was stable and remained in room with mother. weight is pending at this time.
[2023-11-17] MEDS: ACETAMINOPHEN 500 MG TABLET PO SCH (14:39)
[2023-11-17] MEDS: IBUPROFEN 600 MG TABLET PO SCH (14:40)
[2023-11-17] MEDS ORDERED: LACTATED RINGERS 1,000 ML IV SCH (15:00)
[2023-11-17] MEDS: DOCUSATE SODIUM 100 MG CAPSULE PO PRN (21:22)
[2023-11-18 10:08] VITALS: O2SAT 98
[2023-11-18 13:55] VITALS: BP 112/67
--- NOTE | 2023-11-18 15:20 | Labor Flowsheet ---
Labor Flowsheet Datetime Report Generated by CPN: 11/18/2023 15:19 Datetime: 11/17/2023 15:31 VITAL SIGNS NBP Sys/Diane/Mean (mmHg): 109 : 71 : 79 Pulse: 93 Datetime: 11/17/2023 13:30 Stage of : Recovery Respirations: 14 SpO2 (%): 98 Temperature (C): 36.7 Temperature Route: Oral Datetime: 11/17/2023 13:15 LaborFlag: Labor Datetime: 11/17/2023 13:09 UTERINE ACTIVITY Monitor Mode: External Frequency (min): 1.5-3.5 Quality: Strong Duration (sec): 60-80 Pattern: Normal: <= 5 Contractions in 10 Minutes Resting Tone (Palpate): Relaxed FHR Baseline Changes: No Baseline Change Variability: Moderate 6-25 bpm Accelerations: None Decelerations: Variable Category: Category II Datetime: 11/17/2023 13:00 ASSESSMENT A Monitor Mode: External US FHR Baseline Rate : 150 Datetime: 11/17/2023 12:05 STAGE 2 Pushing: Coached on Pushing Pushing Position: Pushing with Contractions; Pushing Lithotomy Datetime: 11/17/2023 12:00 Comments: decels noted with pushing Datetime: 11/17/2023 11:45 Vital Sign Comments: BP take4n during cxtn Datetime: 11/17/2023 11:31 Pushing Progress: Descent with Pushing Stage 2 Comments: Pt begins pushing Datetime: 11/17/2023 11:25 Patient Care Comments: Pt states she is beginning to feel an urge to push Datetime: 11/17/2023 10:46 VAGINAL EXAM Dilatation (cm): 10.0 Effacement (%): 100 Station: 0 Exam by: Dr.Shimon Datetime: 11/17/2023 10:10 MEDICATIONS Pitocin (milliunits): Increased to @ 8 Datetime: 11/17/2023 09:35 PATIENT CARE Patient Position/Activity: Semi-Fowlers Datetime: 11/17/2023 09:30 Contraction Comments: coupling Datetime: 11/17/2023 07:55 Membranes Ruptured Date/Time: 11/17/2023 02:15 Cervical Ripening Agents Other: misoprostol Datetime: 11/17/2023 07:27 Antibiotics: Ampicillin IV 1 Gm Medication Comments: second dose Datetime: 11/17/2023 07:19 Anesthesia Comments: T10 on right, T8 on left. Pt. still very comfortable. Will turn pt. on right and push button for bolus and cont. to monitor. Datetime: 11/17/2023 05:40 Actions for Decelerations: IV Bolus Datetime: 11/17/2023 05:19 I/O Interventions: Doran Cath Inserted Datetime: 11/17/2023 05:16 Epidural Procedure Other: Pump Started Datetime: 11/17/2023 04:43 Epidural Procedure: Loading Dose Datetime: 11/17/2023 04:31 PROCEDURE TIME OUT Procedure Verify: Correct Patient Identity; Correct Side and Site are Marked; Accurate Procedure Co nsent Form; Agreement on Procedure to be Done; Correct Patient Position; Relevant Images and Results are Properly Labeled and Displayed; Addressed Need to Administer Antibiotics or Fluids for Irrigation ; Safety Precautions Based on Patient History or Medication Use Datetime: 11/17/2023 04:23 ANESTHESIA Epidural Positioning: Sitting Datetime: 11/17/2023 03:17 Monitor Interventions for UA: [place] Adjusted Monitor Interventions for FHR: Ultrasound Adjusted Datetime: 11/17/2023 02:23 Hygiene: Shower Datetime: 11/17/2023 02:15 Membrane Status: Ruptured Membranes Rupture Method: Spontaneous Amniotic Fluid Color: Clear Amniotic Fluid Amount: Moderate Amniotic Fluid Odor: Normal Nitrazine: Positive Datetime: 11/17/2023 00:14 Cervical Ripening Agents: Doran Balloon; Cytotec @ Datetime: 11/16/2023 14:58 COMMUNICATION Communication: Provider at Bedside Notification Reason: Labor Status Communication Comments: Provider bedside w/ pt. to discuss induction plan. Datetime: 11/16/2023 13:52 Vaginal Bleeding: None Cervix, Consistency: Soft Datetime: 11/16/2023 01:16 Teaching Comments: l Datetime: 11/15/2023 21:58 Analgesics/Sedatives: Ambien (mg) @ 5 Datetime: 11/15/2023 20:48 MATERNAL ASSESSMENT Level of Consciousness: Alert Headache: Denies Nausea/Vomiting: Denies RUQ Epigastric Pain: Denies TEACHING Instructional Method: Verbal; Verbalized Understanding Plan of Care: Plan of Care Discussed Unit Routine: [place] to Room; Call [place]; Bed; Waiting Areas Labor/Induction: Cervical Ripening; Induction; Tachysystole Interventions Pain Management: IV Narcotics; Epidural; PRN Medications; Pain Scale/Goals; Comfort Measures Medications: Antibiotics; Cervical Ripening; Pitocin Related: Hydration
--- NOTE | 2023-11-18 22:50 | DISCHARGE SUMMARY ---
"Discharge Summary Admit Date: 11/15/23 Discharge Date: 11/18/23 Discharging Provider: Claudia Grimm MD Code Status: Attempt Resuscitation - DIAGNOSES Admission Diagnoses: s/p vaginal delivery at term. LGA baby. Discharge Diagnoses with Status of Each Condition: delivered and doing well. - HPI History of Present Illness: admitted for labor induction. baby with large EFW and AC > 99%ile. - CONSULTS | PROCEDURES Procedures: misoprostol and catheter to induce labor. vaginal delivery. - HOSPITAL COURSE Hospital Course: patient was admitted and susan alot with miso. catheter placed in cervix. removed after 12 hours and not in labor. more miso. finally SROM and then active labor and delivery vaginall. Baby born [birth year] at 1315. 9lb 10.7 oz. 21 inches long. Post course was unremarkable and she was discharged home at 24 hours. Baby's name is JUAN. She will follow up in 1 week. - ALLERGIES Allergies/Adverse Reactions: Allergies Allergy/AdvReac Type Severity Reaction Status Date / Time Sulfa (Sulfonamide Allergy Intermediate Hives Verified 11/16/23 05:23 Antibiotics) - MEDICATIONS Home Medications: Ambulatory Orders Medication Instructions Recorded Confirmed Acetaminophen [Tylenol] 1,000 mg PO Q8H PRN #30 tab 11/18/23 Docusate Sodium 100Mg Capsule 100 mg PO BID PRN #30 cap 11/18/23 [Colace 100Mg Capsule] Ferrous Sulfate [Slow Release Iron] 250 mg PO DAILY #90 tab 11/18/23 Ibuprofen [Motrin] 600 mg PO Q6H PRN #30 tab 11/18/23 Pnv No.95/Ferrous Fum/Folic AC 1 each PO DAILY #90 tablet 11/18/23 [ Formula] - PHYSICAL EXAM AT DISCHARGE General Appearance: positive: No acute distress Abdomen: positive: Non-tender - LABS Result Diagrams: 11/15/23 20:40 - FOLLOW UP Follow Up: 1 week - TIME SPENT Time Spent in Discharge (Minutes): 15"
== END 2023-11-18 14:45 | disposition home or self-care (01) | DRG 807 ==
LOC: WFO 19:32 → FBP 19:32 → WFO 20:24 → UNDOADMOB 20:24 → OBSVTOIN 11-17 04:31 → FBP 11-17 04:31
PROVIDERS: ADMIT Obstetrics & Gynecology; ATTEND Obstetrics & Gynecology
PROC: 10E0XZZ Delivery of Products of Conception, External Approach (ICD-10-PCS; principal; 2023-11-17)
PROC: 0KQM0ZZ Repair Perineum Muscle, Open Approach (ICD-10-PCS; 2023-11-17)
PROC: 3E033VJ Introduction of Other Hormone into Peripheral Vein, Percutaneous Approach (ICD-10-PCS; 2023-11-17)
DX: O36.63X0 Maternal care for excessive fetal growth, third trimester, not applicable or unspecified (principal); Z37.0 Single live birth; O70.1 Second degree perineal laceration during delivery; O99.824 Streptococcus B carrier state complicating childbirth; Z3A.39 39 weeks gestation of pregnancy; O99.214 Obesity complicating childbirth; Z87.891 Personal history of nicotine dependence
CPT/HCPCS: 36415; 59409; 85025; 86850; 86900; 86901; A9270; G0378; J7120; 96365